=== PATIENT | female | born 2000 | race Caucasian/White ===

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

== ENCOUNTER 2022-01-28 15:07 | Emergency (ER) | payer OTHER | END 2022-01-28 16:27 | disposition left against medical advice (07) | LOC: ER1 15:07 | DX: R07.9 Chest pain, unspecified (principal); Z91.040 Latex allergy status | CPT/HCPCS: 93005; 99281 ==